=== PATIENT | male | born 1945 | race Caucasian/White ===

== ENCOUNTER 2022-07-22 11:07 | Outpatient (CLI) | payer MEDICARE | END 2022-07-22 11:08 | disposition home or self-care (01) | LOC: CSHWCC 11:07 | PROVIDERS: ATTEND Nurse Practitioner Family | DX: T81.89XD Other complications of procedures, not elsewhere classified, subsequent encounter (principal) | CPT/HCPCS: 11042; 97607 ==

== ENCOUNTER 2022-08-19 10:59 | Outpatient (CLI) | payer MEDICARE | END 2022-08-19 11:00 | disposition home or self-care (01) | LOC: CSHWCC 10:59 | PROVIDERS: ATTEND Nurse Practitioner Family | DX: S81.001D Unspecified open wound, right knee, subsequent encounter (principal) | CPT/HCPCS: 97139; G0463; 99212 ==